=== PATIENT | female | born 1995 | race Caucasian/White ===

== ENCOUNTER 2025-07-20 20:06 | Emergency (ER) | payer OTHER, SELFPAY ==
--- OUTSIDE RECORDS SUMMARY | 2002-06-12 19:00 | XMS_ITS | Continuity of Care Document ---
Author Organization [facility] Address [address] [place] [address] Phone Care Team Providers Care Industrial Education Teacher Name Role Phone Barbara Clayton MD Unavailable Unavailable Advance Directives Directive Yes / No Effective Date File Name No Information Encounters Encounter Description Practice Location Reason(s) For Visit Diagnoses Date Provider Providers Copied on Encounter [facility], [address], [place], [place], [id number], tel:[phone] [facility] [address], [id number] . tel: [phone] [facility], [address], [place], [place], [id number], tel:[phone] [facility]IN[facility] INCONTINENCE NOS [facility]enez[facility]iquis [address] [facility] [place] [address], [place], [place], [id number] . tel: [phone] Family History Family Member Type Diagnosis Age At Onset No Information Payers Payer name Insurance type Covered republican ID Authoriza tion(s) No Information Social History Type Description Quantity Date Captured Comments Sex Female Smoking Status No Information Chief Complaint And Reason For Visit No Information Reason For Referral Reason For Referral No Information History Of Present Illness Encounter Date Complaint History Of Prese nt Illness No Information Functional Status Date Functional Assessmen t No Information Instructions Date Instruction Additional Infor mation No Information Assessments Type Assessment Date No Information Patient Care Teams Name Effective Dates (start - stop) Status Members No Information
[2025-07-20] VITALS (21 sets, daily range): BP systolic 121–149; BP diastolic 68–89; PULSE 73; RESP 18; TEMP 36.6; O2SAT 97–100
--- NOTE | ~2025-07-20 | CT_ITS ---
EXAMINATION: CT brain wo con DATE: 07/20/2025 20:48 INDICATION: Headache TECHNIQUE: Computed tomography (CT) of the head was performed without intravenous contrast. Sagittal and coronal reconstructions were performed. The mA was adjusted according to patient size. Iterative reconstruction technique was employed. The dose-length product was 605.33 mGy-cm. COMPARISON: head CT dated 07/01/2016 FINDINGS: No acute intracranial hemorrhage, acute infarction or abnormal extra axial fluid collection. Ventricles are normal and symmetric. No mass/mass effect. The orbits, paranasal sinuses and mastoid air cells are normal. IMPRESSION: 1. Normal head CT Reviewed, dictated and finalized at location A. IMPRESSION: 1. Normal head CT
--- OUTSIDE RECORDS SUMMARY | 2025-07-20 20:09 | XMS_ITS | Clinical Summary ---
Author Organization [facility] Address [address] [place] [address] Care Team Providers Care Woodworker Helper Name Role Phone Neela Waters LYN-TRAIN OPERATIONS SUPERVISOR Primary Care Provider [phone] Source Comments [facility],non-owned Affiliates and Associated Physician Practices is amultiple site organization consisting of ambulatory clinics and hospital sitesin [place], [place], [place] and [place]. This disclosure is being madepursuant to the Care Everywhere program and may not contain all information available regarding this patient. Last updated 18.[facility] Allergies No known active allergies Medications * Be aware that medications may not be up to date on this document. Alwaysverify current medications with the patient. desogestrel-ethi nyl estradiol (APRI) 0.15-30 MG-MCG tablet Take 1 Tab by mouth once daily. Active polyethylene glycol 3350 (MIRALAX) powder Take 8.5 g by mouth once daily. 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 Gender Identity Female Sexual Orientation Not on file Last Filed Vital Signs Vital Sign Reading Time Taken Comments Blood Pressure 132/68 03/04/2017 4:42 AM CDT Pulse 76 03/04/2017 4:55 AM CDT Temperature 36.8 C (98.3 F) 03/03/2017 10:06 PM CDT Respiratory Rate 16 03/04/2017 4:55 AM CDT Oxygen Saturation 100% 03/04/2017 4:55 AM CDT Inhaled Oxygen Concentration - - Weight 45.8 kg (101 lb) 03/03/2017 10:06 PM CDT Height 160 cm (5' 3) 03/03/2017 10:06 PM CDT Body Mass Index 17.89 03/03/2017 10:06 PM CDT Plan of Treatment Health Maintenance Due Date Last Done Comments HIV SCREENING 2009 HEPATITIS C SCREENING 11/07/2012 DTAP/TDAP/TD VACCINES (1 - Tdap) 2013 HEPATITIS B VACCINE (1 of 3 - 19+ 3-dose series) 2013 HPV VACCINE (1 - 3-dose SCDM series) 2021 COVID-19 VACCINE (1 - 2023-2 5 season) 2024 DEPRESSION SCREENING 11/23/2024 INFLUENZA VACCINE (#1) 2025 ZOSTER VACCINE (1 of 2) 2044 HIB VACCINE Aged Out No longer eligi ble based on patient's age to complete this topic MENINGOCOCCAL (Group B) VACC INE SHARED DECISION-MAKING Aged Out No longer eligibl e based on patient's age to complete this topic MENINGOCOCCAL GROUPS A/C/Y/W VACCINE Aged Out No longer eligible b ased on patient's age to complete this topic PNEUMOCOCCAL VACCINE Aged Out No long er eligible based on patient's age to complete this topic Care Teams Woodworker Helper Relationship Specialty Start Date End Date Neela Waters APRN-TRAIN OPERATIONS SUPERVISOR [address] [place] [address] PCP - General 05/05/11
--- OUTSIDE RECORDS SUMMARY | 2025-07-20 20:52 | XMS_ITS | Clinical Summary ---
Author Organization [facility] Address [address] [place] [address] Care Team Providers Care Metal Flow Coordinator Name Role Phone Neela Waters LYN-DISPATCH MANAGER Primary Care Provider [phone] Source Comments [facility],non-owned Affiliates and Associated Physician Practices is amultiple site organization consisting of ambulatory clinics and hospital sitesin [place], [place], [place] and [place]. This disclosure is being madepursuant to the Care Everywhere program and may not contain all information available regarding this patient. 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
--- NOTE | 2025-07-20 21:30 | ED.HA ---
HPI - Headache General Chief Complaint: Headache Stated Complaint: headache for 1 week Time Seen by Provider: 07/20/25 20:26 Source: patient Mode of arrival: ambulatory Limitations: no limitations History of Present Illness HPI Narrative: This is a 29 year old female that presents to the ER for headache. Ongoing over the last week. Reports a head injury one year ago. Reports she has been intermittently struggling with headaches since. She has not been evaluated for this yet. Denies vision changes, vomiting, focal numbness or weakness. Related Data Allergies Allergy/AdvReac Type Severity Reaction Status Date / Time No Known Allergies Allergy Unknown Verified 07/20/25 20:12 Review of Systems Review of Systems: All systems reviewed & are unremarkable except as noted in HPI and below PMFSH Past Medical History Medical History (Updated 07/20/25 @ 23:15 by Ashley Lewis PA-C) Vitiligo Exam Narrative: GENERAL: Well-appearing, well-nourished, and in no acute distress. HEAD: Normocephalic, atraumatic. EYES: PERRLA and EOMI. ENT: Nares clear, no rhinorrhea or epistaxis. Mucous membranes moist. Oropharynx without tonsillar hypertrophy exudate or other lesions. Bilateral TMs pearly merino non-bulging NECK: Supple. No adenopathy or masses. CHEST: Clear to auscultation. No respiratory distress. No wheezes rales or rhonchi HEART: Regular rate and rhythm. No murmur heard. Normal peripheral pulses. EXTREMITIES: Normal range of motion. No edema. Strength equal in bilateral upper and lower extremities (5/5) SKIN: Warm, dry, no rash. NEURO: No focal deficits. Alert and oriented x3. Cranial nerves 2-12 grossly intact PSYCH: Normal mood and affect Course Course Emergency Course: Patient updated on her workup, agrees with plan of care Vital Signs Vital signs: Vital Signs Temperature 97.8 F 07/20/25 20:09 Pulse Rate 73 07/20/25 20:09 Respiratory Rate 18 07/20/25 20:09 Blood Pressure 121/68 07/20/25 20:09 Pulse Oximetry 98 07/20/25 20:09 Oxygen Delivery Room Air 07/20/25 20:09 Temperature 97.8 F 07/20/25 20:09 Pulse Rate 73 07/20/25 20:09 Respiratory Rate 18 07/20/25 20:09 Blood Pressure 121/68 07/20/25 20:09 Pulse Oximetry 98 07/20/25 20:09 Oxygen Delivery Room Air 07/20/25 20:09 MDM - Headache MDM Narrative Medical decision making narrative: Patient presents to the emergency department for headache that is been ongoing over the last week. Reports a head injury a year ago, has been struggling with headaches since. Has not seen a provider about this yet. She is afebrile and nontoxic appearing. Her vital signs are normal. CT brain is normal. Patient with relief after migraine cocktail. Encouraged to have further follow-up with her PCP, given information for Neurology follow-up. She was given warnings to return to the ER Differential Diagnosis Differential diagnosis: Likely migraine, tension headache, subarachnoid hemorrhage, headache and sinusitis Imaging Data Radiologist's impression: ITS Impressions Head CT 07/20/25 20:55 IMPRESSION: 1. Normal head CT Critical Care Time Critical Care Time Critical Care Time: No Discharge Plan Discharge Clinical Impression: Headache Qualifiers: Headache type: unspecified Headache chronicity pattern: acute headache Intractability: not intractable Qualified Code(s): R51.9 - Headache, unspecified Patient Disposition: Home Condition: Improved Instructions: Acute Headache (ED) Additional Instructions: Return to the emergency department if you experience fever, stiff neck, vision changes, vomiting, numbness, weakness, or any other symptoms that are concerning to you. Follow up with your primary care doctor Patient Language: Algerian Follow-up/Referrals: Diego Jha MD [Physician, Neurology] PHYSICIAN NOT ON STAFF,NONSTAFF [Primary Care Provider]
[2025-07-20] MEDS: ACETAMINOPHEN 500 MG TABLET 1000 MG PO (22:08)
[2025-07-20] MEDS: KETOROLAC 15 MG/ML VIAL (*BKC) IV PUSH (22:08)
[2025-07-20] MEDS: METOCLOPRAMIDE HCL INJ 10 MG/2 ML VIAL IV PUSH (22:10)
[2025-07-20] MEDS: SODIUM CHLORIDE 0.9% IV 1,000 ML 999 ML IV CONT (22:10)
== END 2025-07-20 23:26 | disposition home or self-care (01) ==
PROVIDERS: Emergency Provider Physician Assistant
DX: R51.9 Headache, unspecified (principal); L80 Vitiligo
CPT/HCPCS: 70450; 96361; 96374; 96375; 99284; A9270; J1200; J1885; J2765; J7030